=== PATIENT | male | born 1970 | race Caucasian/White ===

== ENCOUNTER 2016-11-12 18:16 | Emergency (ER) | payer OTHER ==
[~2016-11-12] VITALS: Ht 188 cm; Wt 81.6 kg
[2016-11-12 19:31] LABS: BASOPHILS % (AUTO) 1.3 % (0.0-2.0); EOSINOPHILS % (AUTO) 1.2 % (0.0-3.0); LYMPHOCYTES % (AUTO) 53.7 % (20.0-45.0); MEAN CORPUSCULAR HEMOGLOBIN 33.8 PG (27.0-31.0); MEAN CORPUSCULAR VOLUME 91 FL (80-99); MEAN PLATELET VOLUME 6.5 FL (6.5-10.1); NEUTROPHILS % (AUTO) 37.9 % (45.0-75.0); PLATELET COUNT 228 K/UL (150-450); RED BLOOD COUNT 4.53 M/UL (4.70-6.10)
[2016-11-12 19:47] LABS: ACETAMINOPHEN < 10 ug/mL (10-30); ALANINE AMINOTRANSFERASE 24 U/L (3-41); ALBUMIN/GLOBULIN RATIO 1.2 (1.0-2.7); ALCOHOL 310 mg/dL; ANION GAP 21 (5-15); CALCIUM 9.5 mg/dL (8.6-10.2); CARBON DIOXIDE 21 mEQ/L (20-30); CHLORIDE 96 mEQ/L (98-107); CREATININE 1.2 mg/dL (0.7-1.2); GLOMERULAR FILTRATION RATE > 60 mL/min (>60); HEMOLYSIS 12; POTASSIUM 3.5 mEQ/L (3.4-4.9); SODIUM 138 mEQ/L (135-145); TOTAL PROTEIN 7.8 g/dL (6.6-8.7)
[2016-11-12 19:55] LABS: ASPARTATE AMINO TRANSFERASE < 5 U/L (5-40)
[2016-11-12 21:20] VITALS: BP 132/81
--- NOTE | 2016-11-12 21:53 | Emergency Room Report ---
History of Present Illness General Chief Complaint: Alcohol Intoxication Source: Significant Other - , EMS (ISIDRO CATHERINE) Present Illness HPI The patient is a 46-year-old male with a history of alcoholism presenting for acute alcohol intoxication.The patient's is at bedside and states that the patient has failed out of multiple rehabilitation facilities over the past year. 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 He states the alcoholism is worsening in the patient is trying to hurt himself. The states the patient hides bottles of vodka around the house, which is what he drank today. The patient is unable to provide any information at this time (ISIDRO CATHERINE) Allergies: Coded Allergies: No Known Allergies (Unverified , 11/12/16) Patient History Past Medical History: see triage record Pertinent Family History: none Social History: Reports: alcohol use Reviewed Nursing Documentation: PMH: Agreed, PSxH: Agreed (ISIDRO CATHERINE) Nursing Documentation-PMH Past Medical History: No History, Except For (ISIDRO CATHERINE.Manan) Review of Systems All Other Systems: negative except mentioned in HPI (ISIDRO CATHERINE) Physical Exam Vital Signs Date Time Temp Pulse Resp B/P Pulse Ox O2 Delivery O2 Flow Rate FiO2 11/12/16 18:13 98.8 118 16 136/78 100 Room Air Sp02 EP Interpretation: reviewed, normal General Appearance: non-toxic Head: normocephalic, atraumatic Eyes: bilateral eye PERRL ENT: hearing grossly normal, normal pharynx, no angioedema, normal voice Respiratory: chest non-tender, lungs clear, normal breath sounds, speaking full sentences Musculoskeletal: normal inspection, normal range of motion Psychiatric: no suicidal/homicidal ideation Skin: normal color, no rash, warm/dry, well hydrated (ISIDRO CATHERINE.[email or web address]) General Appearance: no apparent distress, alert, GCS 15 Neurologic: alert, oriented x3, responsive Psychiatric: normal inspection, memory normal, mood/affect normal, no suicidal/ homicidal ideation, no delusions (Anton Rocha) Medical Decision Making PA Attestation Dr. Rocha is my supervising physician. Patient management was discussed with my supervising physician (ISIDRO CATHERINE) Diagnostic Impression: Primary Impression: Acute alcoholic intoxication Qualified Codes: F10.120 - Alcohol abuse with intoxication, uncomplicated ER Course The pt is a 46 y M presenting for acute alcohol intoxication DDx considered but not limited to: acute alcohol intoxication, hepatic encephalopathy, drug overdose, hypoglycemia, psychosis, self harm ideation Blood alcohol is significantly elevated. Pt is stable and will be signed out to Dr. Rocha to further evaluate when sober. Laboratory Tests Test 11/12/16 19:23 White Blood Count 9.0 K/UL (4.8-10.8) Red Blood Count 4.53 M/UL (4.70-6.10) L Hemoglobin 15.3 G/DL (14.2-18.0) Hematocrit 41.4 % (42.0-52.0) L Mean Corpuscular Volume 91 FL (80-99) Mean Corpuscular Hemoglobin 33.8 PG (27.0-31.0) H Mean Corpuscular Hemoglobin Concent 37.0 G/DL (32.0-36.0) H Red Cell Distribution Width 12.0 % (11.6-14.8) Platelet Count 228 K/UL (150-450) Mean Platelet Volume 6.5 FL (6.5-10.1) Neutrophils (%) (Auto) 37.9 % (45.0-75.0) L Lymphocytes (%) (Auto) 53.7 % (20.0-45.0) H Monocytes (%) (Auto) 6.0 % (1.0-10.0) Eosinophils (%) (Auto) 1.2 % (0.0-3.0) Basophils (%) (Auto) 1.3 % (0.0-2.0) Sodium Level 138 mEQ/L (135-145) Potassium Level 3.5 mEQ/L (3.4-4.9) Chloride Level 96 mEQ/L (98-107) L Carbon Dioxide Level 21 mEQ/L (20-30) Anion Gap 21 (5-15) H Blood Urea Nitrogen 11 mg/dL (7-23) Creatinine 1.2 mg/dL (0.7-1.2) Estimate Glomerular Filtration Rate > 60 mL/min (>60) Glucose Level 124 mg/dL (74-106) H Calcium Level 9.5 mg/dL (8.6-10.2) Total Bilirubin 0.4 mg/dL (0.0-1.2) Aspartate Amino Transferase (AST) < 5 U/L (5-40) L Alanine Aminotransferase (ALT) 24 U/L (3-41) Alkaline Phosphatase 85 U/L (40-129) Total Protein 7.8 g/dL (6.6-8.7) Albumin 4.4 g/dL (3.5-5.2) Globulin 3.4 g/dL Albumin/Globulin Ratio 1.2 (1.0-2.7) Salicylates Level < 1 mg/dL (10-30) L Urine Opiates Screen Negative (NEGATIVE) Acetaminophen Level < 10 ug/mL (10-30) L Urine Barbiturates Screen Negative (NEGATIVE) Phencyclidine (PCP) Screen Negative (NEGATIVE) Urine Amphetamines Screen Negative (NEGATIVE) Urine Benzodiazepines Screen Negative (NEGATIVE) Urine Cocaine Screen Negative (NEGATIVE) Urine Marijuana (THC) Screen Negative (NEGATIVE) Serum Alcohol 310 mg/dL (ISIDRO CATHERINE.A.) ER Course The patient was endorsed to me by physician assistant facility manager, see prior note for full HPI. Patient was noted to have been acutely intoxicated with alcohol. The patient stated that he did not want to harm himself and had no suicidal thoughts. Patient was noted to be more sober. The patient stated that he wanted to leave the hospital. The patient was subsequently noted to have eloped without notifying staff. [facility] was contacted for patient as he had IV present at the time of elopement. Labs Test 11/12/16 19:23 White Blood Count 9.0 K/UL (4.8-10.8) Red Blood Count 4.53 M/UL (4.70-6.10) Hemoglobin 15.3 G/DL (14.2-18.0) Hematocrit 41.4 % (42.0-52.0) Mean Corpuscular Volume 91 FL (80-99) Mean Corpuscular Hemoglobin 33.8 PG (27.0-31.0) Mean Corpuscular Hemoglobin Concent 37.0 G/DL (32.0-36.0) Red Cell Distribution Width 12.0 % (11.6-14.8) Platelet Count 228 K/UL (150-450) Mean Platelet Volume 6.5 FL (6.5-10.1) Neutrophils (%) (Auto) 37.9 % (45.0-75.0) Lymphocytes (%) (Auto) 53.7 % (20.0-45.0) Monocytes (%) (Auto) 6.0 % (1.0-10.0) Eosinophils (%) (Auto) 1.2 % (0.0-3.0) Basophils (%) (Auto) 1.3 % (0.0-2.0) Sodium Level 138 mEQ/L (135-145) Potassium Level 3.5 mEQ/L (3.4-4.9) Chloride Level 96 mEQ/L (98-107) Carbon Dioxide Level 21 mEQ/L (20-30) Anion Gap 21 (5-15) Blood Urea Nitrogen 11 mg/dL (7-23) Creatinine 1.2 mg/dL (0.7-1.2) Estimat Glomerular Filtration Rate > 60 mL/min (>60) Glucose Level 124 mg/dL (74-106) Calcium Level 9.5 mg/dL (8.6-10.2) Total Bilirubin 0.4 mg/dL (0.0-1.2) Aspartate Amino Transf (AST/SGOT) < 5 U/L (5-40) Alanine Aminotransferase (ALT/SGPT) 24 U/L (3-41) Alkaline Phosphatase 85 U/L (40-129) Total Protein 7.8 g/dL (6.6-8.7) Albumin 4.4 g/dL (3.5-5.2) Globulin 3.4 g/dL Albumin/Globulin Ratio 1.2 (1.0-2.7) Salicylates Level < 1 mg/dL (10-30) Urine Opiates Screen Negative (NEGATIVE) Acetaminophen Level < 10 ug/mL (10-30) Urine Barbiturates Screen Negative (NEGATIVE) Phencyclidine (PCP) Screen Negative (NEGATIVE) Urine Amphetamines Screen Negative (NEGATIVE) Urine Benzodiazepines Screen Negative (NEGATIVE) Urine Cocaine Screen Negative (NEGATIVE) Urine Marijuana (THC) Screen Negative (NEGATIVE) Serum Alcohol 310 mg/dL (Anton Rocha) Last Vital Signs Date Time Temp Pulse Resp B/P Pulse Ox O2 Delivery O2 Flow Rate FiO2 11/12/16 21:20 98.7 108 15 132/81 100 Room Air Status: improved (ISIDRO CATHERINE) Status: improved (Anton Rocha) Disposition: ELOPED Condition: Unknown Signed Out To: Dr. Rocha (ISIDRO CATHERINE) Referrals: NOT CHOSEN IPA/,REFERRING (PCP) ISIDRO CATHERINE Nov 12, 2016 21:53 Anton Rocha Nov 13, 2016 02:28
[2016-11-12 21:59] VITALS: BP 132/81
[2016-11-12] MEDS ORDERED: Thiamine HCl 100mg/ml Inj ONE (22:29)
[2016-11-12] MEDS ORDERED: Thiamine HCl 100 MG in D5W 55 ML IVPB ONE (22:30)
[2016-11-13 03:16] VITALS: BP 1/1
== END 2016-11-13 00:50 | disposition left against medical advice (07) ==
LOC: EDBD 18:16 → EMR 18:39
DX: F10.129 Alcohol abuse with intoxication, unspecified (principal)
CPT/HCPCS: 36415; 80053; 80300; 85025; 96360; 96361; 96374; 99284; G0480; 80329